=== PATIENT | female | born 1960 | race Caucasian/White ===

== ENCOUNTER 2022-08-24 12:01 | Inpatient (IN) ==
[2022-08-24] MEDS ORDERED: IOPAMIDOL 100 ML BOTTLE IV ONE (13:18)
[2022-08-24] MEDS: HYDROmorphone 1 MG/ML SYRINGE IV PRN ×2 (13:21→20:59)
[2022-08-24] MEDS: 0.9 % SODIUM CHLORIDE 1,000 ML IV SCH ×2 (13:22→21:00)
[2022-08-24] MEDS: PIPERACILLIN SODIUM/TAZOBACTAM 3.375 GM in DEXTROSE 5% IN WATER 50 ML IV SCH ×2 (13:30→18:29)
--- NOTE | 2022-08-24 13:34 | Cat Scan Report ---
CLINICAL INFORMATION: COMPARISON: None. TECHNIQUE: Following enteric contrast, 80 cc of Isovue-370 were injected intravenously, and 60 seconds later, 0.625 mm helical slices were obtained from the mid heart through the subtrochanteric regions. Following reconstruction, 2.5 mm sagittal, coronal and axial reformatted images were processed and reviewed at bone, lung and soft tissue windows. Five minutes later, 0.625 mm helical slices were obtained from the mid heart through the kidneys and viewed at soft tissue windows.The exam was performed using radiation dose optimization techniques including, but not limited to, automated exposure control, adjustment of the mA and/or kV according to patient size and use of iterative reconstruction technique. FINDINGS: The lung bases show subsegmental atelectasis in the posterior lower lobes.. No effusions. The visualized heart is grossly normal. Abdominal images show the gallbladder is surgically absent. Mild dilatation of the bile duct (8 mm) is compatible with post cholecystectomy state. Mild fatty change seen within the liver but no focal hepatic lesions. The spleen, both adrenal glands, kidneys, pancreas and aorta are normal in size configuration and attenuation without focal lesion. An image of pelvis show hysterectomy oopherectomy change. The urinary bladder is normal. There are multiple sigmoid diverticuli appreciated no diverticulitis. The remaining large bowel, small bowel and stomach are grossly normal. A large amount free air is predominantly seen in the nondependent anterior mesenteric cavity extending from the epigastric region to the true pelvis. A small amount of free fluid noted in the paracolic gutters. No adenopathy. Bone windows show no osseous abnormality. IMPRESSION: Large amount of free air in the nondependent anterior mesenteric cavity compatible GI tract perforation. The site of perforation is not evident. Sigmoid diverticulosis. Interpreted and Authenticated by: Rocky Curry 08/24/22
[2022-08-24 13:48] LABS: Basophils # (Auto) 0.03 K/mcL (0.00-0.30); Basophils % (Auto) 0.2 % (0.0-2.0); Eosinophils # (Auto) 0.01 K/mcL (0.00-0.70); Eosinophils % (Auto) 0.1 % (0.0-7.0); Hematocrit 45.5 % (34.1-44.9); Hemoglobin 14.8 g/dL (11.2-15.7); Lymphocytes # (Auto) 0.75 K/mcL (1.50-4.80); Lymphocytes % (Auto) 5.8 % (15.5-49.0); Mean Cell Volume 90.6 fL (80.0-100.0); Mean Corpuscular HGB Conc 32.5 g/dL (31.0-36.0); Mean Platelet Volume 9.7 fL (8.8-12.5); Monocytes # (Auto) 0.45 K/mcL (0.10-0.90); Monocytes % (Auto) 3.5 % (1.0-12.0); Neutrophils % (Auto) 90.1 % (38.0-78.0); Platelet Count 212 K/mcL (140-440); RBC 5.02 M/mcL (3.59-5.38); Red Cell Distribution Width 13.5 % (11.5-14.5); WBC 12.9 K/mcL (4.5-11.0)
--- NOTE | 2022-08-24 13:48 | General Surg History&Physical ---
HPI History of Present Illness Patient information: Note initiated : 08/24/22 at 1:35 pm Service Date, if different from initiated Date: [] Patient: Eugenia Nagel a 62 y/o F admitted on 08/24/22 for possible bowel perf. Chief Complaint: [] Chief complaint: Colon perforation post colonic biopsy History of present illness: Ms. Nagel is a 62 year old F who was having routine screening colonoscopy this morning. She has family history of colon cancer. She also has had problems with diarrhea. During the colonoscopy patient was found to have pancolonic colitis which appeared to be superficial. Biopsies of the ascending colon were taken where the inflammation appeared to be more prominent. Biopsies were also taken in the descending colon. Postprocedure patient developed severe abdominal pain which was uncontrolled with analgesics. Plain films of the abdomen suggests free air. The patient had CT which shows extensive free air around the right colon in the area of the biopsy. Patient is admitted to the hospital and will have laparotomy washout and closure of the biopsy site. Review of Systems All systems: reviewed and no additional remarkable complaints except as stated Gastrointestinal Gastrointestinal: Present abdominal pain, change in bowel habits, diarrhea and loose stools PFSH PFSH All Active Problems (Updated 08/24/22 @ 13:47 by Ketty Wilson MD) Acute colitis (Acute) Perforation of colon as colonoscopy complication (Acute) Anxiety and depression (Acute) Family history of colon cancer (Acute) Colon cancer screening (Chronic) Memory loss (Chronic) Migraine (Chronic) Generalized anxiety disorder (Chronic) Encounter for screening colonoscopy (Chronic) COVID-19 (Chronic) Acute chest wall pain (Chronic) Diverticulitis (Chronic) Allergic reaction (Chronic) Depression (Chronic) Adjustment reaction (Chronic) Viral syndrome (Chronic) Urinary tract infection (Chronic) Medical History Adjustment reaction Colon cancer screening Depression Encounter for screening colonoscopy Generalized anxiety disorder Memory loss Migraine Viral syndrome Surgical History History of ankle surgery History of cholecystectomy History of tonsillectomy and adenoidectomy S/P [employer] shunt Family History Other No pertinent family history Social History occupational status: unemployed physical activity: none smoking status: Never smoker alcohol intake frequency: does not drink substance use type: does not use MEDS/ALLERGIES Home Medications and Allergies Home Medications Medication Instructions Recorded Confirmed Type escitalopram oxalate 10 mg tablet 10 mg PO QDAY 07/18/22 08/24/22 History peg 3350-electrolytes 236 240 ml PO Q10M #4,000 mL 07/18/22 08/24/22 Rx gram-22.74 gram-6.74 gram-5.86 gram solution (Golytely) peg 3350-electrolytes 236 240 ml PO Q10M #4,000 mL 08/21/22 08/24/22 Rx gram-22.74 gram-6.74 gram-5.86 gram solution (Golytely) budesonide 6 mg capsule,extended 6 mg PO QAM Acute colitis #30 caps 08/24/22 08/24/22 Rx release Allergies Allergy/AdvReac Type Severity Reaction Status Date / Time Erythromycin Base Allergy Unknown Nausea Verified 08/24/22 07:47 From COMPAZINE Allergy Unknown AGITATED Uncoded 07/18/22 09:08 Physical Examination Vital Signs Vital signs: Temp Pulse Resp BP Pulse Ox O2 Del Method 98.1 F 75 16 137/75 98 Room Air 08/24/22 12:14 08/24/22 12:14 08/24/22 12:14 08/24/22 12:14 08/24/22 12:14 08/24/22 12:14 General physical appearance General physical exam: well developed, well nourished, moderate distress, severe pain and obese Eyes Eye exam: PERRL and normal ocular movement ENT ENT exam: no hearing loss Head Head exam IM: Present atraumatic, normal inspection and normocephalic Neck Neck exam: no masses, no bruits, trachea midline, no lymphadenopathy and no venous distension Cardiovascular Cardiovascular exam IM: Present RRR, +S1, +S2 and tachycardia (Heart rate 110); Absent JVD Respiratory Respiratory exam: normal expansion, normal respiratory effort and clear to auscultation Abdomen Abdomen: Present tender (Diffuse tenderness of entire abdomen more prominent on the right side than left) and guarding Integumentary Integumentary: Present no rash, no growths and no abnormal pigmentation Neurologic Neurologic: Present normal coordination and normal sensation Musculoskeletal Musculoskeletal: Present normal gait and normal posture Psychiatric Psychiatric: Present oriented to time, oriented to person, oriented to place, speech is normal and memory intact Results Labs 08/24/22 12:54 08/24/22 12:54 Labs: All other labs normal. A/P Assessment and plan (1) Perforation of colon as colonoscopy complication: Status: Acute (2) Family history of colon cancer: Status: Acute (3) Acute colitis: Status: Acute (4) Anxiety and depression: Status: Acute (5) Encounter for screening colonoscopy: Status: Chronic Plan Zosyn 3.375 g IV every 6 hours Normal saline 125 mg IV Consent to be signed for exploratory laparotomy Sepsis Sepsis Identified: No Time Spent With Patient Time: Total time spent is greater than 50% in coordination of care (as documented) at patient's floor/unit and/or counseling patient:
[2022-08-24] MEDS ORDERED: LIDOCAINE HCL/PF 100 MG/5 ML SYRINGE IV ONE (14:08)
[2022-08-24] MEDS ORDERED: ONDANSETRON 4 MG/2 ML VIAL ONE (14:08)
[2022-08-24] MEDS ORDERED: PROPOFOL 200 MG/20 ML VIAL IV ONE (14:08)
[2022-08-24] MEDS ORDERED: BUPIVACAINE PF 0.25% 30 ML VIAL IJ ONE (14:08)
[2022-08-24] MEDS ORDERED: ROCURONIUM 10 MG/ML ML IV ONE (14:08)
[2022-08-24] MEDS ORDERED: METOCLOPRAMIDE 10 MG/2 ML VIAL ONE (14:08)
[2022-08-24] MEDS ORDERED: ePHEDrine 50 MG/5 ML SYRINGE (ANEST) IV ONE (14:08)
[2022-08-24] MEDS ORDERED: BUPRENORPHINE HCL 0.3 MG/ML ML ONE (14:08)
[2022-08-24] MEDS ORDERED: SUGAMMADEX SODIUM 200 MG/2 ML VIAL IV ONE (14:08)
[2022-08-24] MEDS ORDERED: DEXMEDETOMIDINE HCL 200 MCG/2 ML VIAL ONE ×2 (14:08→16:10)
[2022-08-24] MEDS ORDERED: PHENYLephrine 1 MG/10 ML SYRINGE (ANEST) ONE (14:08)
[2022-08-24] MEDS ORDERED: SUCCINYLCHOLINE 20 MG/ML ML IV ONE (14:08)
[2022-08-24] MEDS ORDERED: fentaNYL 100 MCG/2 ML VIAL IV ONE (14:08)
[2022-08-24] MEDS ORDERED: IPRATROPIUM/ALBUTEROL 3 ML AMPUL.NEB NEB PRN (14:55)
[2022-08-24] MEDS ORDERED: fentaNYL 100 MCG/2 ML VIAL IV PRN (14:55)
[2022-08-24] MEDS ORDERED: MEPERIDINE 25 MG/ML VIAL IV PRN (14:55)
[2022-08-24] MEDS ORDERED: ONDANSETRON 4 MG/2 ML VIAL IV PRN (14:55)
[2022-08-24] MEDS ORDERED: PROMETHAZINE 25 MG/ML VIAL IV PRN (14:55)
[2022-08-24] MEDS ORDERED: HYDROmorphone 0.5 MG/0.5 ML SYRINGE IV PRN (14:55)
[2022-08-24] MEDS ORDERED: NALOXONE HCL 0.4 MG/ML VIAL IV PRN (14:55)
[2022-08-24 15:22] LABS: ALT/SGPT 14 U/L (<40); AST/SGOT 17 U/L (<32); Albumin/Globulin Ratio 1.4 (1.0-2.3); Alkaline Phosphatase 49 U/L (39-117); Bilirubin,Direct < 0.2 mg/dL (0-0.3); Bilirubin,Total 0.7 mg/dL (0.1-1.0); Blood Urea Nitrogen 20 mg/dL (8-23); Calcium 9.4 mg/dL (8.6-10.4); Carbon Dioxide 20 mmol/L (22-30); Chloride 100 mmol/L (96-108); Globulin 2.8 gm/dL (2.2-3.7); Glomerular Filtration Rate 79; Glucose 111 mg/dL (70-105); Lactate Dehydrogenase 176 U/L (135-225); Phosphorous 3.5 mg/dL (2.5-4.5); Triglycerides 85 mg/dL (<150); Uric Acid 6.3 mg/dL (2.5-8.0)
[2022-08-24] MEDS ORDERED: BUPIVACAINE PF 0.25% 10 ML VIAL IJ ONE (16:10)
[2022-08-24] MEDS ORDERED: BUPRENORPHINE/NALOXONE 4MG/1MG ORAL FILM SL ONE (16:10)
--- NOTE | 2022-08-24 16:26 | Brief Operative Note ---
Brief Operative Note Date of procedure: 08/24/22 Pre-op diagnosis: perforated right colon post colonoscopy Post-op diagnosis: other (perforated right colon post colonoscopy) Procedure: exploratory laparotomy with drainage Grafts/Implants: No (esau drain x2 rlq) Anesthesia: GETA Findings: dilated cecum with air infiltrating mesentery but no perforation found extensive lower abdominal adhesions Complications: none Surgeon: Ketty Wilson Estimated blood loss (cc): 200 Specimens Removed/Pathology: none sent Condition: stable Disposition: PACU
--- NOTE | 2022-08-24 17:00 | Brief Operative Note ---
Brief Operative Note Date of procedure: 08/24/22 Pre-op diagnosis: F/H OF COLON CANCER Post-op diagnosis: other (PANCOLONIC COLITIS;DIVERTICULOSIS ;CECAL PERFORATION) Procedure: COLONOSCOPY WITH BIOPSIES Grafts/Implants: No Anesthesia: MAC Findings: DIFFUSE DIVERTICULOSIS;DIFFUSE SEVERE INFLAMMATION OF ENTIRE COLON Complications: other (CECAL PERFORATION) Surgeon: Ketty Wilson Estimated blood loss (cc): 0 Specimens Removed/Pathology: other (COLON BIOPSIES) Disposition: other (PATIENT ADMITTED FOR URGENT CT OF ABDOMEN AND LAPAROTOMY)
[2022-08-24] MEDS ORDERED: LORazepam 2 MG/ML VIAL IV PRN (18:05)
[2022-08-24] MEDS: ACETAMINOPHEN 1,000 MG/100 ML BAG IV SCH ×4 (18:12→20:59)
[2022-08-25] MEDS: ACETAMINOPHEN 1,000 MG/100 ML BAG IV SCH ×6 (00:02→20:19)
[2022-08-25] MEDS: PIPERACILLIN SODIUM/TAZOBACTAM 3.375 GM in DEXTROSE 5% IN WATER 50 ML IV SCH ×4 (00:31→17:42)
[2022-08-25] MEDS: 0.9 % SODIUM CHLORIDE 1,000 ML IV SCH ×2 (05:38→16:36)
[2022-08-25] MEDS: HYDROmorphone 1 MG/ML SYRINGE IV PRN ×7 (05:52→22:22)
[2022-08-25 06:24] LABS: Basophils # (Auto) 0.01 K/mcL (0.00-0.30); Basophils % (Auto) 0.1 % (0.0-2.0); Eosinophils # (Auto) 0 K/mcL (0.00-0.70); Eosinophils % (Auto) 0 % (0.0-7.0); Hematocrit 40.8 % (34.1-44.9); Hemoglobin 13.2 g/dL (11.2-15.7); Lymphocytes # (Auto) 0.65 K/mcL (1.50-4.80); Lymphocytes % (Auto) 5.3 % (15.5-49.0); Mean Cell Volume 90.9 fL (80.0-100.0); Mean Corpuscular HGB Conc 32.4 g/dL (31.0-36.0); Mean Platelet Volume 10.1 fL (8.8-12.5); Monocytes # (Auto) 0.35 K/mcL (0.10-0.90); Monocytes % (Auto) 2.8 % (1.0-12.0); Neutrophils % (Auto) 91.5 % (38.0-78.0); Platelet Count 213 K/mcL (140-440); RBC 4.49 M/mcL (3.59-5.38); Red Cell Distribution Width 13.6 % (11.5-14.5); WBC 12.3 K/mcL (4.5-11.0)
[2022-08-25 06:48] LABS: ALT/SGPT 11 U/L (<40); AST/SGOT 13 U/L (<32); Albumin 3.4 gm/dL (3.2-5.2); Albumin/Globulin Ratio 1.4 (1.0-2.3); Alkaline Phosphatase 38 U/L (39-117); Bilirubin,Direct 0.2 mg/dL (<0.3); Bilirubin,Total 0.7 mg/dL (0.1-1.0); Blood Urea Nitrogen 14 mg/dL (8-23); Calcium 8.8 mg/dL (8.6-10.4); Carbon Dioxide 23 mmol/L (22-30); Chloride 105 mmol/L (96-108); Globulin 2.4 gm/dL (2.2-3.7); Glomerular Filtration Rate 79; Glucose 155 mg/dL (70-105); Lactate Dehydrogenase 178 U/L (135-225); Phosphorous 2.5 mg/dL (2.5-4.5); Triglycerides 51 mg/dL (<150); Uric Acid 3.4 mg/dL (2.5-8.0)
--- NOTE | 2022-08-25 15:11 | General Surgery Progress Note ---
SUBJECTIVE Subjective Patient information: Note initiated : 08/25/22 at 3:07 pm Service Date, if different from initiated Date: [] Patient: Eugenia Nagel 62 y/o F admitted on 08/24/22 for possible bowel perf. Chief Complaint: [] Interval history: Patient is doing well. She has been afebrile. Her abdominal pain is controlled. She denies nausea. She has had flatus. White blood count 12.3, hemoglobin 13.2, hematocrit 40.8. ADELA P drain with small amount of bloody drainage. No evidence of purulent or feculent drainage Constitutional Vitals: Vital Signs Temp Pulse Resp BP Pulse Ox O2 Del Method O2 Flow Rate 96.6 F L 55 L 16 112/82 96 Room Air 0 08/25/22 11:39 08/25/22 11:39 08/25/22 11:39 08/25/22 11:39 08/25/22 11:39 08/25/22 11:39 08/24/22 17:06 Period Temp Pulse Resp BP Sys/[place]nor Pulse Ox O2 Del Method O2 Flow Rate Last 24 Hr 96.6 F-98.9 F 55-88 16-29 93-128/60-90 93-100 Room Air-Room Air 0-4 Intake and Output 08/25/22 08/25/22 08/25/22 03:59 11:59 19:59 Intake Total 1300 150 110 Output Total 730 300 80 Balance 570 -150 30 Weight 209 lb 3.2 oz 209 lb 3.2 oz Patient Weight 08/26/22 03:59 Weight 209 lb 3.2 oz Intake & Output: Intake & Output 08/25/22 08/25/22 08/25/22 03:59 11:59 19:59 Intake Total 1300 150 110 Output Total 730 300 80 Balance 570 -150 30 Weight 209 lb 3.2 oz 209 lb 3.2 oz Intake: IV 1300 150 50 Sodium Chloride 0.9% 1,000 ml @ 1000 125 mls/hr IV .Q8H JOSE ALFREDO Rx#: [id number] Zosyn 3.375 gm In Dextrose 5% 100 50 50 in Water 50 ml @ 100 mls/hr IV Q6H JOSE ALFREDO Rx#:[id number] Oral 60 Output: Drainage 130 Abdomen 90 Abdomen ADELA Drain 40 Drainage 80 Abdomen 40 Abdomen ADELA Drain 40 Void Amount 600 300 Other: Urine Appearance Clear Urine Color Dark Yellow # Voids 1 General appearance: average body habitus, no acute distress and obese Respiratory Respiratory exam: Present normal respiratory exam and CTAB Cardiovascular Cardiovascular exam: Present normal rate and rhythm, RRR, +S1 and +S2; Absent JVD GI/Abdominal GI/Abdominal exam: Present normal bowel sounds, soft and tenderness (Moderate incisional tenderness); Absent distended Additional comments: bloody output via drains; no purulent or feculent drainage Extremities Exam Extremities exam: Present normal inspection and neurovascular intact Neurological Exam Neurological exam: Present oriented X3 Psychiatric Psychiatric exam: Present normal affect and normal mood A/P Assessment and plan (1) Perforation of colon as colonoscopy complication: Status: Acute (2) Acute colitis: Status: Acute (3) Anxiety and depression: Status: Acute (4) Memory loss: Status: Chronic Plan Continue antibiotics and monitoring Time Spent With Patient Time: Total time spent is greater than 50% in coordination of care (as documented) at patient's floor/unit and/or counseling patient:
[2022-08-25] MEDS ORDERED: BENZOCAINE 20% 1 SPRAY EACH TOPICAL PRN (15:43)
[2022-08-25] MEDS: BENZOCAINE/MENTHOL 1 LOZENGE PO PRN ×2 (15:49→22:25)
[2022-08-26] MEDS: 0.9 % SODIUM CHLORIDE 1,000 ML IV SCH ×4 (00:19→20:13)
[2022-08-26] MEDS: PIPERACILLIN SODIUM/TAZOBACTAM 3.375 GM in DEXTROSE 5% IN WATER 50 ML IV SCH ×5 (00:19→23:15)
[2022-08-26] MEDS: HYDROmorphone 1 MG/ML SYRINGE IV PRN ×7 (00:19→22:27)
[2022-08-26] MEDS: ACETAMINOPHEN 1,000 MG/100 ML BAG IV SCH ×4 (02:26→20:12)
[2022-08-26 06:47] LABS: Basophils # (Auto) 0.01 K/mcL (0.00-0.30); Basophils % (Auto) 0.1 % (0.0-2.0); Eosinophils # (Auto) 0 K/mcL (0.00-0.70); Eosinophils % (Auto) 0 % (0.0-7.0); Lymphocytes # (Auto) 1.24 K/mcL (1.50-4.80); Lymphocytes % (Auto) 7.9 % (15.5-49.0); Mean Cell Volume 92.7 fL (80.0-100.0); Mean Corpuscular HGB Conc 31.6 g/dL (31.0-36.0); Mean Platelet Volume 10.3 fL (8.8-12.5); Monocytes # (Auto) 0.85 K/mcL (0.10-0.90); Monocytes % (Auto) 5.4 % (1.0-12.0); Neutrophils % (Auto) 86.1 % (38.0-78.0); Platelet Count 228 K/mcL (140-440); Red Cell Distribution Width 13.9 % (11.5-14.5); WBC 15.8 K/mcL (4.5-11.0)
[2022-08-26 07:24] LABS: ALT/SGPT 10 U/L (<40); AST/SGOT 15 U/L (<32); Albumin 3.3 gm/dL (3.2-5.2); Albumin/Globulin Ratio 1.2 (1.0-2.3); Alkaline Phosphatase 40 U/L (39-117); Bilirubin,Direct < 0.2 mg/dL (0-0.3); Bilirubin,Total 0.5 mg/dL (0.1-1.0); Blood Urea Nitrogen 16 mg/dL (8-23); Calcium 8.8 mg/dL (8.6-10.4); Carbon Dioxide 26 mmol/L (22-30); Chloride 105 mmol/L (96-108); Globulin 2.7 gm/dL (2.2-3.7); Glomerular Filtration Rate 79; Glucose 111 mg/dL (70-105); Lactate Dehydrogenase 195 U/L (135-225); Phosphorous 1.7 mg/dL (2.5-4.5); Triglycerides 75 mg/dL (<150); Uric Acid 2.8 mg/dL (2.5-8.0)
[2022-08-26] MEDS: BENZOCAINE/MENTHOL 1 LOZENGE PO PRN ×3 (12:53→20:12)
--- NOTE | 2022-08-26 13:35 | General Surgery Progress Note ---
SUBJECTIVE Subjective Patient information: Note initiated : 08/26/22 at 1:32 pm Service Date, if different from initiated Date: [] Patient: Eugenia Nagel 62 y/o F admitted on 08/24/22 for possible bowel perf. Chief Complaint: [] Principal diagnosis: Perforation of colon Interval history: Patient is doing well. She does have minimal confusion at night. This is a longstanding problem. She appears to be clinically oriented today. She complains of sore throat from her nasogastric tube. She denies having any nausea or vomiting. White blood count 15.8, hemoglobin 12, hematocrit 38 Constitutional Vitals: Vital Signs Temp Pulse Resp BP Pulse Ox O2 Del Method O2 Flow Rate 97.5 F 64 16 105/63 100 Room Air 0 08/26/22 11:57 08/26/22 11:57 08/26/22 11:57 08/26/22 11:57 08/26/22 11:57 08/26/22 11:57 08/24/22 17:06 Period Temp Pulse Resp BP Sys/Oconnor Pulse Ox O2 Del Method O2 Flow Rate Last 24 Hr 97 F-98.6 F 58-88 16-20 105-137/63-83 94-100 Room Air-Room Air Intake and Output 08/26/22 08/26/22 08/26/22 03:59 11:59 19:59 Intake Total 1269 1150 183 Output Total 1275 Balance -6 1150 183 Weight 210 lb 9.6 oz Intake & Output: Intake & Output 08/26/22 08/26/22 08/26/22 03:59 11:59 19:59 Intake Total 1269 1150 183 Output Total 1275 Balance -6 1150 183 Weight 210 lb 9.6 oz Intake: IV 1214 1150 183 Sodium Chloride 0.9% 1,000 ml @ 964 1000 133 125 mls/hr IV .Q8H JOSE ALFREDO Rx#: [id number] Zosyn 3.375 gm In Dextrose 5% 50 50 50 in Water 50 ml @ 100 mls/hr IV Q6H JOSE ALFREDO Rx#:[id number] Input, Drain Irrigation Amount 55 Abdomen 55 Output: Gastric Drainage 650 Right Nare NG/OG 650 Drainage 75 Abdomen ADELA Drain 75 Void Amount 550 Other: Urine Appearance Clear Urine Color Yellow General appearance: average body habitus, no acute distress and obese Respiratory Respiratory exam: Present normal respiratory exam and CTAB Cardiovascular Cardiovascular exam: Present normal rate and rhythm, RRR, +S1 and +S2; Absent JVD GI/Abdominal GI/Abdominal exam: Present normal bowel sounds, soft and tenderness (Moderate incisional tenderness); Absent distended Additional comments: bloody output via drains; no purulent or feculent drainage Extremities Exam Extremities exam: Present normal inspection and neurovascular intact Neurological Exam Neurological exam: Present oriented X3 Psychiatric Psychiatric exam: Present normal affect and normal mood A/P Assessment and plan (1) Perforation of colon as colonoscopy complication: Status: Acute (2) Acute colitis: Status: Acute (3) Anxiety and depression: Status: Acute (4) Altered mental status: Status: Acute Plan Cepastat lozenges as needed Change abdominal dressing CT of abdomen and pelvis with IV contrast tomorrow May have ice chips and popsicles Time Spent With Patient Time: Total time spent is greater than 50% in coordination of care (as documented) at patient's floor/unit and/or counseling patient:
[2022-08-26] MEDS ORDERED: BENZOCAINE/MENTHOL 1 LOZENGE PO PRN (13:38)
[2022-08-27] MEDS: ACETAMINOPHEN 1,000 MG/100 ML BAG IV SCH ×4 (02:49→20:21)
[2022-08-27] MEDS: HYDROmorphone 1 MG/ML SYRINGE IV PRN ×4 (04:25→20:22)
[2022-08-27] MEDS: BENZOCAINE/MENTHOL 1 LOZENGE PO PRN ×2 (04:27→11:51)
[2022-08-27] MEDS: PIPERACILLIN SODIUM/TAZOBACTAM 3.375 GM in DEXTROSE 5% IN WATER 50 ML IV SCH ×3 (05:15→17:58)
[2022-08-27] MEDS ORDERED: IOPAMIDOL 100 ML BOTTLE IV ONE (08:20)
[2022-08-27] MEDS: 0.9 % SODIUM CHLORIDE 1,000 ML IV SCH ×3 (08:39→20:27)
--- NOTE | 2022-08-27 15:02 | General Surgery Progress Note ---
SUBJECTIVE Subjective Patient information: Note initiated : 08/27/22 at 2:59 pm Service Date, if different from initiated Date: [] Patient: Eugenia Nagel 62 y/o F admitted on 08/24/22 for possible bowel perf. Chief Complaint: [] Principal diagnosis: Perforation of colon Interval history: Patient is doing well. She has clear mental state today. She has no complaints except for nasogastric tube tenderness. She has passed flatus. CT shows major reduction in free air with a small amount of free air in the mesentery of the upper abdomen. Area around the right colon is significantly decreased. There is no bilious or feculent output through her drains. Constitutional Vitals: Vital Signs Temp Pulse Resp BP Pulse Ox O2 Del Method O2 Flow Rate 97.5 F 65 16 123/77 99 Room Air 0 08/27/22 11:15 08/27/22 11:15 08/27/22 11:15 08/27/22 11:15 08/27/22 11:15 08/27/22 11:15 08/24/22 17:06 Period Temp Pulse Resp BP Sys/O[place]nor Pulse Ox O2 Del Method O2 Flow Rate Last 24 Hr 96.9 F-98.3 F 54-69 16-18 105-124/58-77 94-100 Room Air-Room Air Intake and Output 08/27/22 08/27/22 08/27/22 03:59 11:59 19:59 Intake Total 1165 1050 Output Total 1595 Balance 1165 -545 Weight 209 lb 4.8 oz Intake & Output: Intake & Output 08/27/22 08/27/22 08/27/22 03:59 11:59 19:59 Intake Total 1165 1050 Output Total 1595 Balance 1165 -545 Weight 209 lb 4.8 oz Intake: IV 1165 1050 Sodium Chloride 0.9% 1,000 ml @ 915 1000 125 mls/hr IV .Q8H JOSE ALFREDO Rx#: [id number] Zosyn 3.375 gm In Dextrose 5% 50 50 in Water 50 ml @ 100 mls/hr IV Q6H JOSE ALFREDO Rx#:[id number] Output: Gastric Drainage 500 Right Nare NG/OG 500 Drainage 195 Abdomen 75 Abdomen ADELA Drain 120 Void Amount 900 Other: Urine Appearance Clear Urine Color Dark Yellow Urine Odor Normal General appearance: average body habitus, no acute distress and obese Respiratory Respiratory exam: Present normal respiratory exam and CTAB Cardiovascular Cardiovascular exam: Present normal rate and rhythm, RRR, +S1 and +S2; Absent JVD GI/Abdominal GI/Abdominal exam: Present normal bowel sounds, soft and tenderness (Moderate incisional tenderness); Absent distended Additional comments: bloody output via drains; no purulent or feculent drainage Extremities Exam Extremities exam: Present normal inspection and neurovascular intact Neurological Exam Neurological exam: Present oriented X3 Psychiatric Psychiatric exam: Present normal affect and normal mood A/P Assessment and plan (1) Perforation of colon as colonoscopy complication: Status: Acute (2) Acute colitis: Status: Acute (3) Altered mental status: Status: Acute (4) Anxiety and depression: Status: Acute Plan Discontinue nasogastric tube Clear liquid diet 3 view abdominal x-rays with upright films in the morning CBC and inpatient panel in the a.m. Time Spent With Patient Time: Total time spent is greater than 50% in coordination of care (as documented) at patient's floor/unit and/or counseling patient:
--- NOTE | 2022-08-27 16:13 | Cat Scan Report ---
CLINICAL INFORMATION: Follow up cecal perforation COMPARISON: None. TECHNIQUE: Following enteric contrast, 80 cc of Isovue-370 were injected intravenously, and 60 seconds later, 0.625 mm helical slices were obtained from the mid heart through the subtrochanteric regions. Following reconstruction, 2.5 mm sagittal, coronal and axial reformatted images were processed and reviewed at bone, lung and soft tissue windows. Five minutes later, 0.625 mm helical slices were obtained from the mid heart through the kidneys and viewed at soft tissue windows.The exam was performed using radiation dose optimization techniques including, but not limited to, automated exposure control, adjustment of the mA and/or kV according to patient size and use of iterative reconstruction technique. FINDINGS: The lung bases are clear. No effusions. The visualized heart is grossly normal. Abdominal images show the gallbladder is surgically absent. Mild dilatation of the bile duct (8 mm) is compatible with postcholecystectomy state. Mild fatty change seen within the liver but no focal hepatic lesions. The spleen, both adrenal glands, kidneys, pancreas and aorta are normal in size configuration and attenuation without focal lesion. Pelvic images show hysterectomy oopherectomy change. The urinary bladder is normal. There are multiple sigmoid diverticuli appreciated, but no diverticulitis. The remaining large bowel, small bowel and stomach are grossly normal. Following surgical repair and drain placement there is no evidence of free intraperitoneal gas or mesenteric fluid. There is, however, moderate retroperitoneal gas adjacent to the descending duodenum and right anterior pararenal space. This was actually present on the previous study but has decreased modestly. Bone windows show no osseous abnormality. IMPRESSION: Following cecal perforation repair, the intraperitoneal gas and fluid resolved. There is moderate retroperitoneal gas adjacent to the descending duodenum and the right anterior pararenal space. This suggests the possibility of duodenal perforation. Sigmoid diverticulosis. Interpreted and Authenticated by: Rocky Curry 08/27/22
[2022-08-28] MEDS: PIPERACILLIN SODIUM/TAZOBACTAM 3.375 GM in DEXTROSE 5% IN WATER 50 ML IV SCH ×3 (00:38→11:49)
[2022-08-28] MEDS: HYDROmorphone 1 MG/ML SYRINGE IV PRN ×5 (00:42→14:32)
[2022-08-28] MEDS: ACETAMINOPHEN 1,000 MG/100 ML BAG IV SCH ×3 (01:52→14:21)
[2022-08-28] MEDS: 0.9 % SODIUM CHLORIDE 1,000 ML IV SCH ×2 (04:47→11:54)
[2022-08-28 06:51] LABS: Basophils # (Auto) 0.03 K/mcL (0.00-0.30); Basophils % (Auto) 0.4 % (0.0-2.0); Eosinophils # (Auto) 0.31 K/mcL (0.00-0.70); Eosinophils % (Auto) 4.4 % (0.0-7.0); Hematocrit 36.6 % (34.1-44.9); Hemoglobin 11.6 g/dL (11.2-15.7); Lymphocytes # (Auto) 1.45 K/mcL (1.50-4.80); Lymphocytes % (Auto) 20.7 % (15.5-49.0); Mean Cell Volume 92.2 fL (80.0-100.0); Mean Corpuscular HGB Conc 31.7 g/dL (31.0-36.0); Monocytes # (Auto) 0.38 K/mcL (0.10-0.90); Monocytes % (Auto) 5.4 % (1.0-12.0); Neutrophils % (Auto) 68.5 % (38.0-78.0); Platelet Count 218 K/mcL (140-440); RBC 3.97 M/mcL (3.59-5.38); Red Cell Distribution Width 13.6 % (11.5-14.5)
[2022-08-28 07:15] LABS: ALT/SGPT 8 U/L (<40); AST/SGOT 14 U/L (<32); Albumin 2.9 gm/dL (3.2-5.2); Albumin/Globulin Ratio 1.1 (1.0-2.3); Alkaline Phosphatase 38 U/L (39-117); Bilirubin,Direct < 0.2 mg/dL (0-0.3); Bilirubin,Total 0.5 mg/dL (0.1-1.0); Blood Urea Nitrogen 8 mg/dL (8-23); Calcium 8.7 mg/dL (8.6-10.4); Carbon Dioxide 26 mmol/L (22-30); Chloride 106 mmol/L (96-108); Globulin 2.7 gm/dL (2.2-3.7); Glomerular Filtration Rate 93; Glucose 85 mg/dL (70-105); Lactate Dehydrogenase 138 U/L (135-225); Phosphorous 1.7 mg/dL (2.5-4.5); Triglycerides 119 mg/dL (<150); Uric Acid 2.2 mg/dL (2.5-8.0)
--- NOTE | 2022-08-28 11:00 | XRay Report ---
HISTORY: Follow-up perforated cecum FINDINGS: Supine and erect views were obtained. There is no free intra-abdominal air. The bowel pattern is normal without evidence of ileus or obstruction. There are two surgical drains in the pelvis and there is a ventricular peritoneal shunt catheter in the midline of the pelvis. IMPRESSION: No acute abnormality Interpreted and Authenticated by: Carlton Rahman 08/28/22
--- NOTE | 2022-08-28 13:39 | Discharge Summary ---
Discharge Provider Provider IMPORTANT FOLLOW-UP INFORMATION FOR PCP: Patient information: Note initiated : 08/28/22 at 1:31 pm Service Date, if different from initiated Date: [] Patient: Eugenia Nagel 62 y/o F admitted on 08/24/22 for possible bowel perf. Chief Complaint: [] Date of admission: 08/24/22 12:14 Discharge date: 08/28/22 Primary care physician: Rocky Lin DO Admitting clinician: Ketty Wilson Attending physician on admission: Ketty Wilson Attending physician on discharge: Ketty Wilson Discharging clinician: Ketty Wilson COURSE Hospital Course Hospital course: 62-year-old female who is undergoing colonoscopy on 24 August 2022. Indication for colonoscopy was family history of colon cancer and change in bowel habits with constant diarrhea. Patient had diffuse colitis extending from the rectum to the cecum. The cecum and the distal sigmoid were biopsied. The patient developed severe uncontrolled pain in the recovery area. X-rays revealed suggestion of free air and this was confirmed by CT. Patient was taken directly to the operating room and explored. She had moderate amount of free air in the peritoneal cavity with some air in the mesentery of the cecum. The cecum was very thin but I did not find any opening in the cecum and there was no evidence of contamination of the peritoneal cavity. A washout was done and 2 drains were placed lateral and medial to the cecum and ascending colon. The patient has done well. Her drains have not drained any feculent material or purulence. Her white count remains normal. Follow-up CT shows resolution of almost all of the free air. She is clinically stable and is discharged home in satisfactory condition. Discharge diagnosis: Pancolonic colitis Secondary discharge diagnosis: Perforation of colon as complication of colonoscopy and biopsy Reason for admission: Post laparotomy for colon perforation Procedures: Colonoscopy with biopsy Exploratory laparotomy with washout and drainage Pertinent studies/significant findings: CT of abdomen and pelvis with IV contrast Complications: Perforation of cecum Time Spent with Patient Time attestation: Total time spent providing and/or coordinating discharge services: Time spent: Less than 30 minutes Physical Examination Vital Signs Vital signs: Temp Pulse Resp BP Pulse Ox O2 Del Method O2 Flow Rate 97.7 F 65 12 126/73 97 Room Air 0 08/28/22 11:39 08/28/22 11:39 08/28/22 11:39 08/28/22 11:39 08/28/22 11:39 08/28/22 11:39 08/24/22 17:06 General physical appearance General physical exam: well developed, well nourished, moderate distress, severe pain and obese Eyes Eye exam: PERRL and normal ocular movement ENT ENT exam: no hearing loss Head Head exam IM: Present atraumatic, normal inspection and normocephalic Neck Neck exam: no masses, no bruits, trachea midline, no lymphadenopathy and no venous distension Cardiovascular Cardiovascular exam IM: Present RRR, +S1, +S2 and tachycardia (Heart rate 110); Absent JVD Respiratory Respiratory exam: normal expansion, normal respiratory effort and clear to auscultation Abdomen Abdomen: Present tender ( Mild incisional tenderness) and surgical scars (Midline incision is healing uneventfully); Absent guarding Integumentary Integumentary: Present no rash, no growths and no abnormal pigmentation Neurologic Neurologic: Present normal coordination and normal sensation Musculoskeletal Musculoskeletal: Present normal gait and normal posture Psychiatric Psychiatric: Present oriented to time, oriented to person, oriented to place, speech is normal and memory intact Discharge Plan Patient/Caregiver Discharge Instructions Activity: increase activity as tolerated Diet: Regular Diet Prescriptions: New budesonide 9 mg tablet,delayed and ext.release 9 mg PO QAM Qty: 30 3RF oxycodone-acetaminophen [Endocet] 10-325 mg tablet 1 tab PO Q4H PRN (Reason: Pain) Qty: 30 0RF levofloxacin [levofloxacin] 750 mg tablet 750 mg PO DAILY Qty: 15 0RF Continued escitalopram oxalate 10 mg tablet 10 mg PO QDAY Discontinued peg 3350-electrolytes [Golytely] 236-22.74-6.74 -5.86 gram recon soln 240 ml PO Q10M Qty: 4000 0RF Rx Instructions: until fecal effluent is clear peg 3350-electrolytes [Golytely] 236-22.74-6.74 -5.86 gram recon soln 240 ml PO Q10M Qty: 4000 0RF Rx Instructions: until fecal effluent is clear No Action budesonide 6 mg capsule, extended release 6 mg PO QAM Qty: 30 5RF Prescription drug monitoring program results: PDMP not reviewed Follow Up Plan Follow up with: Ketty Wilson MD [Physician] - 09/14/22 2:15 pm () Patient Disposition: Home, Self-Care Prognosis: Good Rehab Potential: Good I certify that the patient requires SNF services: No Overall status at discharge: patient is progressing back to baseline Discharge Orders: Discharge Order (Routine); Ordered 08/28/22 Ordered By: Ketty Wilson Pending Pending Pending: Resuscitation Status Full Code Diet Clear Liquid Diet Start [place] Aug 27 1438 Hydromorphone HCl (Hydromorphone 1 Mg/Ml Syringe) 1 mg IV Q2HP PRN; Protocol PRN Reason: Per Pain Protocol Last Admin: 08/28/22 10:40 Dose: 1 mg Documented By: Admin: 08/28/22 06:29 Dose: 1 mg Documented By: Admin: 08/28/22 04:44 Dose: 1 mg Documented By: Admin: 08/28/22 00:42 Dose: 1 mg Documented By: Admin: 08/27/22 20:22 Dose: 1 mg Documented By: Admin: 08/27/22 15:12 Dose: 1 mg Documented By: Admin: 08/27/22 07:53 Dose: 1 mg Documented By: Admin: 08/27/22 04:25 Dose: 1 mg Documented By: Admin: 08/26/22 22:27 Dose: 1 mg Documented By: Admin: 08/26/22 18:45 Dose: 1 mg Documented By: Admin: 08/26/22 15:01 Dose: 1 mg Documented By: Admin: 08/26/22 08:52 Dose: 1 mg Documented By: Admin: 08/26/22 05:32 Dose: 1 mg Documented By: Admin: 08/26/22 02:26 Dose: 1 mg Documented By: Admin: 08/26/22 00:19 Dose: 1 mg Documented By: Admin: 08/25/22 22:22 Dose: 1 mg Documented By: Admin: 08/25/22 20:18 Dose: 1 mg Documented By: Admin: 08/25/22 17:42 Dose: 1 mg Documented By: Admin: 08/25/22 14:51 Dose: 1 mg Documented By: Admin: 08/25/22 10:54 Dose: 1 mg Documented By: Admin: 08/25/22 08:01 Dose: 1 mg Documented By: Admin: 08/25/22 05:52 Dose: 1 mg Documented By: Admin: 08/24/22 20:59 Dose: 1 mg Documented By: Admin: 08/24/22 13:21 Dose: 1 mg Documented By: LEONEL Sodium Chloride (Sodium Chloride 0.9%) 1,000 mls @ 125 mls/hr IV .Q8H [facility] Admin: 08/28/22 11:54 Dose: Not Given Documented By: Admin: 08/28/22 04:47 Dose: 125 mls/hr Documented By: Infusion: 08/28/22 02:00 Dose: 0 mls/hr Documented By: Admin: 08/27/22 20:27 Dose: Not Given Documented By: Admin: 08/27/22 18:00 Dose: 125 mls/hr Documented By: Infusion: 08/27/22 16:39 Dose: 125 mls/hr Documented By: Admin: 08/27/22 08:39 Dose: 125 mls/hr Documented By: Infusion: 08/27/22 04:13 Dose: 125 mls/hr Documented By: [email or web address] Admin: 08/26/22 20:13 Dose: 125 mls/hr Documented By: Infusion: 08/26/22 20:13 Dose: 125 mls/hr Documented By: Admin: 08/26/22 12:54 Dose: 125 mls/hr Documented By: [email or web address] Infusion: 08/26/22 12:54 Dose: 125 mls/hr Documented By: [email or web address] Admin: 08/26/22 11:50 Dose: 125 mls/hr Documented By: [email or web address] Infusion: 08/26/22 08:19 Dose: 125 mls/hr Documented By: [email or web address] Admin: 08/26/22 00:19 Dose: 125 mls/hr Documented By: [email or web address] Infusion: 08/26/22 00:19 Dose: 125 mls/hr Documented By: [email or web address] Infusion: 08/25/22 21:15 Dose: 125 mls/hr Documented By: Infusion: 08/25/22 21:15 Dose: 0 mls/hr Documented By: Admin: 08/25/22 16:36 Dose: 125 mls/hr Documented By: Infusion: 08/25/22 13:38 Dose: 125 mls/hr Documented By: Admin: 08/25/22 05:38 Dose: 125 mls/hr Documented By: Infusion: 08/24/22 22:07 Dose: 0 mls/hr Documented By: Admin: 08/24/22 21:00 Dose: Not Given Documented By: Admin: 08/24/22 13:22 Dose: 125 mls/hr Documented By: LEONEL Piperacillin Sod/Tazobactam (Sod 3.375 gm/ Dextrose) 50 mls @ 100 mls/hr IV Q6H [facility]; Protocol Last Admin: 08/28/22 11:49 Dose: 100 mls/hr Documented By: Infusion: 08/28/22 06:26 Dose: 0 mls/hr Documented By: Admin: 08/28/22 05:07 Dose: 100 mls/hr Documented By: Infusion: 08/28/22 01:10 Dose: 0 mls/hr Documented By: Admin: 08/28/22 00:38 Dose: 100 mls/hr Documented By: Infusion: 08/27/22 18:30 Dose: 0 mls/hr Documented By: Admin: 08/27/22 17:58 Dose: 100 mls/hr Documented By: Infusion: 08/27/22 12:22 Dose: 100 mls/hr Documented By: Admin: 08/27/22 11:52 Dose: 100 mls/hr Documented By: Infusion: 08/27/22 05:46 Dose: 0 mls/hr Documented By: Admin: 08/27/22 05:15 Dose: 100 mls/hr Documented By: Infusion: 08/26/22 23:45 Dose: 0 mls/hr Documented By: Admin: 08/26/22 23:15 Dose: 100 mls/hr Documented By: Infusion: 08/26/22 18:40 Dose: 0 mls/hr Documented By: Admin: 08/26/22 18:02 Dose: 100 mls/hr Documented By: Infusion: 08/26/22 12:25 Dose: 0 mls/hr Documented By: Admin: 08/26/22 11:51 Dose: 100 mls/hr Documented By: Infusion: 08/26/22 06:06 Dose: 0 mls/hr Documented By: Admin: 08/26/22 05:33 Dose: 100 mls/hr Documented By: Infusion: 08/26/22 01:00 Dose: 0 mls/hr Documented By: Admin: 08/26/22 00:19 Dose: 100 mls/hr Documented By: Infusion: 08/25/22 19:28 Dose: 0 mls/hr Documented By: Admin: 08/25/22 17:42 Dose: 100 mls/hr Documented By: Infusion: 08/25/22 13:12 Dose: 0 mls/hr Documented By: Admin: 08/25/22 12:21 Dose: 100 mls/hr Documented By: Infusion: 08/25/22 06:40 Dose: 0 mls/hr Documented By: Admin: 08/25/22 05:38 Dose: 100 mls/hr Documented By: Infusion: 08/25/22 01:12 Dose: 0 mls/hr Documented By: Admin: 08/25/22 00:31 Dose: 100 mls/hr Documented By: Infusion: 08/24/22 21:00 Dose: 0 mls/hr Documented By: Admin: 08/24/22 18:29 Dose: 100 mls/hr Documented By: Infusion: 08/24/22 14:10 Dose: 100 mls/hr Documented By: Admin: 08/24/22 13:30 Dose: 100 mls/hr Documented By: LEONEL Acetaminophen (Ofirmev) 1,000 mg in 100 mls @ 200 mls/hr IV Q6H [facility]SE ALFREDO Last Infusion: 08/28/22 10:24 Dose: 200 mls/hr Documented By: Admin: 08/28/22 09:43 Dose: 200 mls/hr Documented By: Infusion: 08/28/22 02:25 Dose: 0 mls/hr Documented By: Admin: 08/28/22 01:52 Dose: 200 mls/hr Documented By: Infusion: 08/27/22 20:55 Dose: 0 mls/hr Documented By: Admin: 08/27/22 20:21 Dose: 200 mls/hr Documented By: Infusion: 08/27/22 18:27 Dose: 0 mls/hr Documented By: Admin: 08/27/22 14:59 Dose: 200 mls/hr Documented By: Infusion: 08/27/22 09:09 Dose: 200 mls/hr Documented By: [email or web address] Admin: 08/27/22 08:39 Dose: 200 mls/hr Documented By: [email or web address] Infusion: 08/27/22 03:39 Dose: 0 mls/hr Documented By: Admin: 08/27/22 02:49 Dose: 200 mls/hr Documented By: Infusion: 08/26/22 21:01 Dose: 0 mls/hr Documented By: Admin: 08/26/22 20:12 Dose: 200 mls/hr Documented By: [facility] Infusion: 08/26/22 18:40 Dose: 0 mls/hr Documented By: Admin: 08/26/22 14:38 Dose: 200 mls/hr Documented By: [email or web address] Infusion: 08/26/22 09:25 Dose: 0 mls/hr Documented By: [email or web address] Admin: 08/26/22 08:53 Dose: 200 mls/hr Documented By: [email or web address] Infusion: 08/26/22 03:11 Dose: 0 mls/hr Documented By: Admin: 08/26/22 02:26 Dose: 200 mls/hr Documented By: Infusion: 08/25/22 21:15 Dose: 0 mls/hr Documented By: Admin: 08/25/22 20:19 Dose: 200 mls/hr Documented By: Infusion: 08/25/22 15:54 Dose: 0 mls/hr Documented By: Admin: 08/25/22 14:51 Dose: 200 mls/hr Documented By: Infusion: 08/25/22 08:03 Dose: 0 mls/hr Documented By: Admin: 08/25/22 07:25 Dose: 200 mls/hr Documented By: Infusion: 08/25/22 03:26 Dose: 0 mls/hr Documented By: Admin: 08/25/22 02:52 Dose: 200 mls/hr Documented By: Infusion: 08/24/22 22:07 Dose: 0 mls/hr Documented By: Admin: 08/24/22 20:59 Dose: 200 mls/hr Documented By: Admin: 08/24/22 18:37 Dose: Not Given Documented By: MARISSA Throat Lozenges (Benzocaine/Menthol 1 Lozenge) 1 lozenge PO PRN PRN PRN Reason: Sore Throat Last Admin: 08/27/22 11:51 Dose: 1 lozenge Documented By: [email or web address] Admin: 08/27/22 04:27 Dose: 1 lozenge Documented By: Admin: 08/26/22 20:12 Dose: 1 lozenge Documented By: Admin: 08/26/22 18:09 Dose: 1 lozenge Documented By: [email or web address] Admin: 08/26/22 12:53 Dose: 1 lozenge Documented By: Admin: 08/25/22 22:25 Dose: 1 lozenge Documented By: Admin: 08/25/22 15:49 Dose: 1 lozenge Documented By: [email or web address] Shift Summary 08/28/22 04:55 Shift Summary by Luanne Galvan Patient is forgetful at times. Having trouble remembering what caused her to have surgery. VSS on RA. ADELA x 2, A output 75cc, B output 100cc. medial incision scant circled drainage. Dilaudid x 2, scheduled Ofirmev. Jem hose on. Voiding via BR SBA. IV Rt AC infusing NS @ 125/hr. Calls appropriately for cares. Initialized on 08/28/22 04:55 - END OF NOTE
--- NOTE | 2022-09-05 15:19 | Operative Note ---
DATE OF OPERATION: 08/24/2022 DATE OF SERVICE: August 24, 2022. PREOPERATIVE DIAGNOSIS: Perforated right colon post colonoscopy. POSTOPERATIVE DIAGNOSIS: Perforated right colon post colonoscopy. PROCEDURE: Exploratory laparotomy with drainage. SURGEON: Ketty Wilson M.D. FINDINGS: Dilated cecum with air infiltrating the proximal mesentery, but no perforation found. No intraperitoneal contamination extensive lower abdominal adhesions. DESCRIPTION OF PROCEDURE: The patient had recently undergone colonoscopy with biopsy. She was found to have pancolitis with inflammation extending from the rectum to the cecum. Since the most involved area was the cecum, it was elected to take biopsies of the cecum across from the ileocecal valve. Biopsies were primarily done on the valves themselves of the cecum. The scope was pulled back and biopsies of the sigmoid were taken. She developed severe pain in the postoperative period and a followup x-ray showed free air. She was taken to the operating room for exploration and drainage. Under general anesthesia, the patient's abdomen was prepped and draped in a sterile field. Timeout procedure was carried out as per protocol. A midline incision was made. Upon entering the peritoneal cavity, free air escaped. There was no smell to the free air. The incision was extended and the cecum was mobilized. The cecum was dilated with air and infiltrated the proximal mesentery immediately adjacent to the bowel wall, but did not extend into the mid portion of the mesentery. These areas were inspected and no perforation was found. I took extensive time to explore the area to try to find any area of perforation. No perforation was noted. It was noted that there was clear fluid in the peritoneal cavity. However, inspection revealed that she had a ventriculoperitoneal shunt and this was probably CSF fluid. There was no fecal contamination and there was no turbid fluid encountered. Inspection of the transverse colon and the descending sigmoid colon and rectum did not reveal any other areas where air was infiltrated in the mesentery. There was no contamination throughout the peritoneal cavity. Irrigation was carried out. It was elected to simply drain the right colon. Two Toribio drains were placed, one medial and one lateral to the cecum and ascending colon. They were brought out through separate incisions. Sponge, needle, instrument and blade counts were verified as correct. The fascia was closed with running #1 Prolene. Subcutaneous tissue was closed with 2-0 Monocryl. Skin was closed with brooke. Drains were secured with 2-0 nylon. The patient tolerated the procedure well. She was awakened and transferred to the postanesthetic care unit in satisfactory condition. LCS:camila Job ID: [id number] Doc ID: [id number] Ketty Wilson M.D.
== END 2022-08-28 15:20 | disposition home or self-care (01) | DRG 357 ==
LOC: MEDSUR 12:14
PROVIDERS: ADMIT Family Medicine Adult Medicine; ATTEND Family Medicine Adult Medicine